=== PATIENT | female | born 1995 | race African-American/Black ===

== ENCOUNTER 2017-12-27 17:09 | Emergency (ER) | payer SELFPAY ==
[2017-12-27 17:31] LABS: BILIRUBIN,URINE NEGATIVE (NEG); CLARITY,URINE CLEAR; COLOR,URINE YELLOW; GLUCOSE,URINE NEGATIVE (NEG); NITRITE,URINE NEGATIVE (NEG); PROTEIN,URINE NEGATIVE (NEG-TRACE); UROBILINOGEN,URINE 0.2 mg/dL (0.2 mg/dL)
[2017-12-27 17:33] LABS: URINE HCG POC HCG NEGATIVE (Negative)
[2017-12-27 17:40] LABS: BACTERIA,URINE 0 /HPF (0-FEW); RBC,URINE 0 /HPF (0-2); SQUAMOUS EPITHELIAL CELL,UR FEW /LPF
== END 2017-12-27 18:51 | disposition home or self-care (01) ==
LOC: ER 18:51
DX: R10.30 Lower abdominal pain, unspecified (principal)
CPT/HCPCS: 81001; 81025; 99283